=== PATIENT | male | born 1975 | race African-American/Black ===

== ENCOUNTER 2022-07-09 15:49 | Outpatient (REF) | payer OTHER, SELFPAY | END 2022-07-09 15:50 | disposition home or self-care (01) | LOC: HO.LNP 15:49 | PROVIDERS: Visit Provider Physician Assistant | DX: L97.515 Non-pressure chronic ulcer of other part of right foot with muscle involvement without evidence of necrosis (principal) | CPT/HCPCS: 87070; 87077; 87147; 87186; 87205 ==

== ENCOUNTER 2022-09-03 15:58 | Outpatient (REF) | payer OTHER, SELFPAY ==
--- NOTE | ~2022-09-03 | MR_ITS ---
EXAMINATION: MR FOOT WITHOUT AND WITH CONTRAST, RIGHT CLINICAL INFORMATION: Nonhealing wound at the 1st metatarsal head. Evaluate for osteomyelitis. COMPARISON: Right foot radiographs dated 07/09/2022. TECHNIQUE: Multisequence MR imaging of the right foot was obtained before and after the IV administration of 10 mL Gadavist contrast on a high-field strength scanner. FINDINGS: Postsurgical change consistent with transmetatarsal amputation. Focal soft tissue ulceration along the plantar aspect of the midfoot adjacent to the 1st tarsometatarsal joint. Ulceration measures approximately 1.5 cm in AP dimension. There is diffuse adjacent soft tissue low T1 and high T2 signal with prominent postcontrast enhancement. This appears peripherally enhancing posteriorly. Findings are consistent with phlegmonous change/early abscess formation. This measures up to 4.5 x 2.3 x 1.2 cm (AP by ML by CC). Adjacent skin thickening, edema, enhancement, consistent with cellulitis. Along the base of the fused 1st tarsometatarsal joint there is periosteal reaction with increased T2 signal and decreased T1 signal as well as mild postcontrast enhancement (sagittal image 02/06), consistent with acute osteomyelitis. 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 Edema and atrophy within the intrinsic musculature of the foot. The visualized portion of the flexor and extensor tendons are intact. MR/MR foot RT wo/w con IMPRESSION: 1. Soft tissue ulceration along the plantar aspect of the midfoot adjacent to the 1st tarsometatarsal joint with adjacent cellulitis and phlegmonous change/early abscess formation measuring up to 4.5 cm in AP dimension. No associated abscess formation. Findings consistent with acute osteomyelitis at the base of the fused 1st tarsometatarsal joint. 2. Transmetatarsal amputation. 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 3. Edema and atrophy within the intrinsic musculature of the foot.
== END 2022-09-03 15:59 | disposition home or self-care (01) ==
LOC: HO.MRI 15:58
PROVIDERS: Visit Provider Physician Assistant
DX: E11.621 Type 2 diabetes mellitus with foot ulcer (principal); L97.515 Non-pressure chronic ulcer of other part of right foot with muscle involvement without evidence of necrosis
CPT/HCPCS: 73720; A9585

== ENCOUNTER → 2022-12-12 16:00 | Outpatient (RCR) | payer OTHER, SELFPAY ==
[2022-07-09 14:19] LABS: MANUAL DIFF FLAG NO
[2022-07-09 14:25] LABS: Basophils Percent Auto 0.4 % (0-2); Eosinophils Absolute Auto 0.3 X10*3/uL (0.0-0.4); Eosinophils Percent Auto 3.7 % (0-4); Hematocrit 42.7 % (42.0-52.0); Hemoglobin 13.7 g/dl (14.0-18.0); Imm Gran Abs Auto 0.02 X10*3/uL (0.00-0.03); Imm Gran Pct Auto 0.3 % (0.0-0.4); Lymphocytes Absolute Auto 1.1 X10*3/uL (1.2-4.9); Lymphocytes Percent Auto 15.6 % (20-40); Mean Corpuscular HGB Conc 32.1 g/dl (31.0-36.0); Mean Corpuscular Hemoglobin 24.6 pg (27.0-33.0); Mean Corpuscular Volume 76.8 fL (80.0-98.0); Monocytes Absolute Auto 0.7 X10*3/uL (0.1-1.2); Monocytes Percent Auto 9.6 % (2-11); Neutrophils Absolute Auto 4.9 x10*3/uL (2.0-8.3); Neutrophils Percent Auto 70.4 % (45-73); Platelet Count 259 X10*3/uL (160-400); Red Blood Count 5.56 X10*6/uL (4.60-5.80); Red Cell Distribution Width 13.9 % (11.0-16.0)
[2022-07-09 15:04] LABS: Erythrocyte Sedimentation Rate 12 MM/HR (0-15)
[2022-07-09 15:40] LABS: Estimated Average Glucose 169 mg/dL; Hemoglobin A1c % 7.5 %
[2022-07-09 16:07] LABS: Anion Gap 14 (12-20); Blood Urea Nitrogen 22 mg/dL (9-16); C Reactive Protein 0.74 mg/dL (< or = 0.50); Calcium 9.3 mg/dL (8.4-10.2); Carbon Dioxide 23 mmol/L (22-29); Chloride 108 mmol/L (96-108); Estimated Glomerular Filt Rate 52; Glucose Random 149 mg/dL (60-115); Potassium 4.8 mmol/L (3.3-5.1); Sodium 140 mmol/L (135-145)
--- NOTE | ~2022-12-12 | XR_ITS ---
EXAMINATION: XR FOOT, RIGHT CLINICAL INFORMATION: Evaluate for osteomyelitis. COMPARISON: None. TECHNIQUE: AP, lateral, and oblique views of the right foot. FINDINGS: Transmetatarsal amputation. No soft tissue gas. There may be a faint heterotopic ossification in the plantar soft tissues. No cortical erosion or periosteal reaction to suggest active osteomyelitis although MRI would be a more sensitive evaluation. XR/XR foot RT min 3V IMPRESSION: Transmetatarsal amputation with no radiographic evidence of osteomyelitis. If there is a high clinical suspicion, MRI would be a more sensitive study.
== END | disposition home or self-care (01) ==
LOC: HO.WCC 11-21 08:21
PROVIDERS: Physician Assistant; Visit Provider Surgery
DX: E11.621 Type 2 diabetes mellitus with foot ulcer (principal); L97.515 Non-pressure chronic ulcer of other part of right foot with muscle involvement without evidence of necrosis; Z79.899 Other long term (current) drug therapy; Z79.4 Long term (current) use of insulin
CPT/HCPCS: 11042; 11043; 11044; 15275; 17250; 29445; 36415; 73630; 80048; 83036; 84134; 85025; 85652; 86140; 97597; 99183; 99212; Q4186